=== PATIENT | female | born 1995 ===

== ENCOUNTER 2018-09-19 10:16 | Emergency (ER) | payer BC ==
[~2018-09-19] VITALS: Ht 160 cm; Wt 99.8 kg
[2018-09-19] MEDS ORDERED: METFORMIN HCL750 MG (11:00)
== END 2018-09-19 15:24 | disposition home or self-care (01) ==
LOC: ER 10:16
DX: S91.321A Laceration with foreign body, right foot, initial encounter (principal); T63.694A Toxic effect of contact with other venomous marine animals, undetermined, initial encounter; M79.671 Pain in right foot; L29.8 Other pruritus; Y92.832 Beach as the place of occurrence of the external cause; Y93.89 Activity, other specified; Y99.8 Other external cause status